=== PATIENT | male | born 1960 | race Hispanic/Latino ===

== ENCOUNTER 2021-11-07 08:36 | Outpatient (CLI) | payer MEDICARE ==
[2021-11-07 18:43] LABS: SARS-CoV-2 PCR by NAA Not Detected (NotDetected)
== END 2021-11-07 08:37 | disposition home or self-care (01) ==
LOC: CSHLAB 08:36
PROVIDERS: ATTEND Internal Medicine Gastroenterology
DX: Z20.822 Contact with and (suspected) exposure to COVID-19 (principal)
CPT/HCPCS: U0003; U0005

== ENCOUNTER 2021-11-12 07:23 | Day surgery (SDC) | payer MEDICARE ==
[2021-11-06 13:08] VITALS: BMI 30.8
[~2021-11-12 07:23] MED LIST: Lidocaine 1% MPF 2 ML VIAL ONE
[2021-11-12] MEDS ORDERED: PROPOFOL 40 ML ONE (08:27)
[2021-11-12] MEDS ORDERED: Lidocaine 1% PF 5 ML VIAL ONE (09:11)
== END 2021-11-12 09:33 | disposition home or self-care (01) ==
LOC: CSHSDC 07:23
PROVIDERS: ATTEND Internal Medicine Gastroenterology
PROC: 0DJD8ZZ Inspection of Lower Intestinal Tract, Via Natural or Artificial Opening Endoscopic (ICD-10-PCS; principal; 2021-11-12)
DX: Z12.11 Encounter for screening for malignant neoplasm of colon (principal); K57.30 Diverticulosis of large intestine without perforation or abscess without bleeding; K64.9 Unspecified hemorrhoids; I25.10 Atherosclerotic heart disease of native coronary artery without angina pectoris; Z95.1 Presence of aortocoronary bypass graft; E11.9 Type 2 diabetes mellitus without complications; I10 Essential (primary) hypertension; E78.5 Hyperlipidemia, unspecified; N40.0 Benign prostatic hyperplasia without lower urinary tract symptoms
CPT/HCPCS: J2704